=== PATIENT | male | born 1985 | race Caucasian/White ===

== ENCOUNTER 2018-04-30 10:48 | Emergency (ER) | payer BC, OTHER ==
--- NOTE | 2018-04-30 11:15 | EDPHYS ---
Physician Documentation [facility] Name: Reinaldo Romero Age: 32 yrs Sex: Male : 1985 Arrival Date: 04/30/2018 Time: 10:54 Bed 20 Private MD: None, None ED Physician Dave Miller HPI: 04/30 11:46 This 32 yrs old Male presents to ER via Ambulatory with complaints of Redness snw of Eye. 11:46 The patient sustained None. to the right eye, caused by an unknown mechanism. Onset: snw The symptoms/episode began/occurred suddenly, today. Duration: the symptoms are continuous. Aggravated by rubbing. Associated signs and symptoms: Pertinent positives: recent URI. Patient does not utilize any form of vision correction. Severity of symptoms: At their worst the symptoms were moderate. The patient has not experienced similar symptoms in the past. The patient has not recently seen a physician. Historical: - Allergies: 11:00 No Known Allergies; aj - Home Meds: 11:00 None [Active]; aj - PMHx: 11:00 None; aj - PSHx: 11:00 None; aj - Immunization history:: Adult Immunizations up to date, Last tetanus immunization: < 5 years ago. - Social history:: Smoking status: Patient/guardian denies using tobacco. - Ebola Screening: : Patient negative for fever greater than or equal to 101.5 degrees Fahrenheit, and additional compatible Ebola Virus Disease symptoms Patient denies exposure to infectious person Patient denies travel to an Ebola-affected area in the 21 days before illness onset. ROS: 11:45 Constitutional: Negative for fever, chills, and weight loss, ENT: Negative for injury, snw pain, and discharge, Neck: Negative for injury, pain, and swelling, Cardiovascular: Negative for chest pain, palpitations, and edema, Respiratory: Negative for shortness of breath, cough, wheezing, and pleuritic chest pain, Abdomen/GI: Negative for abdominal pain, nausea, vomiting, diarrhea, and constipation, Back: Negative for injury and pain, : Negative for injury, bleeding, discharge, and swelling, MS/Extremity: Negative for injury and deformity, Skin: Negative for injury, rash, and discoloration, Neuro: Negative for headache, weakness, numbness, tingling, and seizure. 11:45 Eyes: Positive for redness, of the outer aspect of conjuctiva of right eye and inner aspect of conjuctiva of right eye. Exam: 11:44 Constitutional: This is a well developed, well nourished patient who is awake, alert, snw and in no acute distress. Head/Face: Normocephalic, atraumatic. 11:44 Neck: Trachea midline, no thyromegaly or masses palpated, and no cervical lymphadenopathy. Supple, full range of motion without nuchal rigidity, or vertebral point tenderness. No Meningismus. Chest/axilla: Normal chest wall appearance and motion. Nontender with no deformity. No lesions are appreciated. Cardiovascular: Regular rate and rhythm with a normal S1 and S2. No gallops, murmurs, or rubs. Normal PMI, no JVD. No pulse deficits. Respiratory: Lungs have equal breath sounds bilaterally, clear to auscultation and percussion. No rales, rhonchi or wheezes noted. No increased work of breathing, no retractions or nasal flaring. Abdomen/GI: Soft, non-tender, with normal bowel sounds. No distension or tympany. No guarding or rebound. No evidence of tenderness throughout. Back: No spinal tenderness. No costovertebral tenderness. Full range of motion. Skin: Warm, dry with normal turgor. Normal color with no rashes, no lesions, and no evidence of cellulitis. MS/ Extremity: Pulses equal, no cyanosis. Neurovascular intact. Full, normal range of motion. Neuro: Awake and alert, GCS 15, oriented to person, place, time, and situation. Cranial nerves II-XII grossly intact. Motor strength 5/5 in all extremities. Sensory grossly intact. Cerebellar exam normal. Normal gait. 11:44 Eyes: Periorbital structures: appear normal, Pupils: no acute changes, Extraocular movements: no acute changes, Conjunctiva: exudate, in the right eye, injected, in the right eye. 11:44 ENT: Ear canal(s): are normal, TM's: bulging, on the left, decreased mobility, Examination of the other ear shows no obvious abnormality, Nose: Nasal mucosa: edematous, Posterior pharynx: is normal, Dental exam: normal. Vital Signs: 11:00 BP 141 / 91; Pulse 61; Resp 20; Temp 97.6; Pulse Ox 99% on R/A; Weight 95.25 kg; Height aj 6 ft. 1 in. (185.42 cm); 11:00 Body Mass Index 27.71 (95.25 kg, 185.42 cm) aj MDM: 11:02 Patient medically screened. snw 11:46 Data reviewed: vital signs, nurses notes. Data interpreted: Pulse oximetry: on room air snw is 99 %. Interpretation: normal. Counseling: I had a detailed discussion with the patient and/or guardian regarding: the historical points, exam findings, and any diagnostic results supporting the discharge/admit diagnosis, the presence of at least one elevated blood pressure reading (>120/80) during this emergency department visit, the need for outpatient follow up, for definitive care, to return to the emergency department if symptoms worsen or persist or if there are any questions or concerns that arise at home. Special discussion: Based on the history and exam findings, there is no indication for further emergent testing or inpatient evaluation. I discussed with the patient/guardian the need to see the ENT specialist for further evaluation of the symptoms. I discussed with the patient/guardian the need to see the primary care provider for further evaluation of the symptoms. Administered Medications: 11:10 Drug: Augmentin 875 mg Route: PO; ae1 11:33 Follow up: Response: Medication administered at discharge. ae1 Disposition: 22:07 Co-signature as Attending Physician, Dave Miller MD I agree with the assessment and kdr plan of care. Disposition: 04/30/18 11:14 Discharged to Home. Impression: Acute suppurative otitis media, Conjunctivitis. - Condition is Stable. - Discharge Instructions: Conjunctivitis (Viral and Bacterial), Otitis Media, Adult, Heat Therapy. - Prescriptions for Augmentin 875- 125 mg Oral Tablet - take 1 tablet by ORAL route every 12 hours for 10 days; 20 tablet. Vigamox 0.5 % Ophthalmic Drops - instill 1 drop by OPHTHALMIC route every 8 hours for 7 days; 5 milliliter. Zyrtec 10 mg Oral Tablet - take 1 tablet by ORAL route once daily As needed; 20 tablet. - Work release form, Medication Reconciliation Form, Thank You Letter, Antibiotic Education, Prescription Opioid Use form. - Follow up: Private Physician; When: 2 - 3 days; Reason: Recheck today's complaints, Continuance of care, Re-evaluation by your physician. Follow up: Emergency Department; When: As needed; Reason: Worsening of condition. Signatures: Kimmy Elizondo, RN RN Dave Magallanes MD MD [facility] Cesilia Hernandez, BEHAVIOUR SUPPORT TEACHER-C BEHAVIOUR SUPPORT TEACHER-[employer] Fredy Chi, RN RN ae1 Corrections: (The following items were deleted from the chart) 11:34 11:14 04/30/2018 11:14 Discharged to Home. Impression: Acute suppurative otitis media; ae1 Conjunctivitis. Condition is Stable. Forms are Medication Reconciliation Form, Thank You Letter, Antibiotic Education, Prescription Opioid Use. Follow up: Private Physician; When: 2 - 3 days; Reason: Recheck today's complaints, Continuance of care, Re-evaluation by your physician. Follow up: Emergency Department; When: As needed; Reason: Worsening of condition. snw
--- NOTE | 2018-04-30 11:15 | ER ---
Nurse's Notes [facility] Name: Reinaldo Romero Age: 32 yrs Sex: Male : 1985 Arrival Date: 04/30/2018 Time: 10:54 Bed 20 Private MD: None, None Diagnosis: Acute suppurative otitis media;Conjunctivitis Presentation: 04/30 10:59 Presenting complaint: Patient states: Reports right eye redness and itchiness since aj this AM. Transition of care: patient was not received from another setting of care. Onset of symptoms was April 30, 2018. Care prior to arrival: None. 10:59 Method Of Arrival: Ambulatory 10:59 Acuity: ALEENA 5 11:32 Risk Assessment: Do you want to hurt yourself or someone else? Patient reports no ae1 desire to harm self or others. Initial Sepsis Screen: Does the patient have a suspected source of infection? Yes: Other: patient reports discharge and redness to right eye. 11:33 Initial Sepsis Screen: Does the patient meet any 2 criteria? No. Patient's initial ae1 sepsis screen is negative. Triage Assessment: 11:00 General: Appears in no apparent distress. comfortable, Behavior is calm, cooperative, aj appropriate for age. Pain: Denies pain. EENT: Sclera/Cornea are reddened in outer aspect of conjuctiva of right eye, iris of right eye and inner aspect of conjuctiva of right eye. Neuro: Level of Consciousness is awake, alert, obeys commands, Oriented to person, place, time, situation, Appropriate for age. Respiratory: Airway is patent Respiratory effort is even, unlabored, Respiratory pattern is regular, symmetrical. Derm: Skin is intact, is healthy with good turgor, Skin is pink, warm \T\ dry. normal. Historical: - Allergies: 11:00 No Known Allergies; aj - Home Meds: 11:00 None [Active]; aj - PMHx: 11:00 None; aj - PSHx: 11:00 None; aj - Immunization history:: Adult Immunizations up to date, Last tetanus immunization: < 5 years ago. - Social history:: Smoking status: Patient/guardian denies using tobacco. - Ebola Screening: : Patient negative for fever greater than or equal to 101.5 degrees Fahrenheit, and additional compatible Ebola Virus Disease symptoms Patient denies exposure to infectious person Patient denies travel to an Ebola-affected area in the 21 days before illness onset. Screenin:31 Abuse screen: Denies threats or abuse. Nutritional screening: No deficits noted. ae1 Tuberculosis screening: No symptoms or risk factors identified. Fall Risk None identified. Assessment: 11:05 General: Appears in no apparent distress. comfortable. Pain: Complains of pain in right ae1 ear and right eye. Neuro: Level of Consciousness is awake, alert, obeys commands, Oriented to person, place, time, situation. Cardiovascular: Patient's skin is warm and dry. Respiratory: Airway is patent Respiratory effort is even, unlabored, Respiratory pattern is regular, symmetrical. GI: No signs and/or symptoms were reported involving the gastrointestinal system. : No signs and/or symptoms were reported regarding the genitourinary system. EENT: Eyes are tearing on outer aspect of conjuctiva of right eye, iris of right eye and inner aspect of conjuctiva of right eye Redness to the right sclera . EENT: Reports pain right ear. Derm: Skin is pink, warm \T\ dry. Musculoskeletal: No signs and/or symptoms reported regarding the musculoskeletal system. Vital Signs: 11:00 BP 141 / 91; Pulse 61; Resp 20; Temp 97.6; Pulse Ox 99% on R/A; Weight 95.25 kg; Height aj 6 ft. 1 in. (185.42 cm); 11:00 Body Mass Index 27.71 (95.25 kg, 185.42 cm) aj ED Course: 10:54 Patient arrived in ED. mr 10:54 None, None is Private Physician. mr 11:00 Triage completed. aj 11:00 Arm band placed on left wrist. Patient placed in an exam room. aj 11:01 Cesilia Hernandez FNP-C is [facility]. snw 11:01 Dave Miller MD is Attending Physician. snw 11:09 Fredy Chi, DOMO is Primary Nurse. ae1 11:28 Bed in low position. Call light in reach. Side rails up X 1. Pulse ox on. ae1 11:32 No provider procedures requiring assistance completed. Patient did not have IV access ae1 during this emergency room visit. Administered Medications: 11:10 Drug: Augmentin 875 mg Route: PO; ae1 11:33 Follow up: Response: Medication administered at discharge. ae1 Outcome: 11:14 Discharge ordered by . snw 11:32 Discharged to home ambulatory. ae1 11:32 Condition: stable 11:32 Discharge instructions given to patient, Instructed on discharge instructions, follow up and referral plans. medication usage, Demonstrated understanding of instructions, Prescriptions given X 3. 11:34 Patient left the ED. ae1 Signatures: Kimmy Elizondo RN RN Cesilia Douglas, CO FOUNDER-C CO FOUNDER-[employer] Maida Anaya Andrea, RN RN ae1 Corrections: (The following items were deleted from the chart) 11:00 10:59 Acuity: ALEENA 2 jesus lee
[2018-04-30] MEDS ORDERED: AMOX/K CLAV 875 MG TAB ONE (11:25)
== END 2018-04-30 11:34 | disposition home or self-care (01) ==
LOC: ER 10:48
DX: H66.002 Acute suppurative otitis media without spontaneous rupture of ear drum, left ear (principal); H10.9 Unspecified conjunctivitis
CPT/HCPCS: 99283

== ENCOUNTER 2019-07-21 06:56 | Day surgery (SDC) | payer BC ==
[2019-07-20 11:27] LABS: Absolute Lymphocytes (CBC) 2.5 K/uL (0.7-4.9); Basophils % 0.5 % (0-1.3); Hematocrit 48.7 % (39.6-49.0); Lymphocytes % 57.4 % (15.3-44.8); MPV 8.2 fL (7.6-11.3); RBC Red Blood Cell Count 5.48 M/uL (4.33-5.43)
[2019-07-20 11:51] LABS: BUN Blood Urea Nitrogen 11 mg/dL (7-18); Bicarbonate 26 mmol/L (21-32); Glucose Level 95 mg/dL (74-106); Potassium 4.2 mmol/L (3.5-5.1); Sodium Level 142 mmol/L (136-145)
[2019-07-20 12:30] LABS: Blood Morphology Comment NOT SEEN (NOT SEEN); Platelet Estimate ADEQ
[2019-07-21] MEDS ORDERED: CEFAZOLIN/SWI 1gm 1 GM/10 ML SYR ONE (07:05)
[2019-07-21] MEDS ORDERED: Ringers Lactate 1,000 ML IV ONE (07:05)
[2019-07-21] MEDS ORDERED: LIDOCAINE 2% MPF 5 ML VIAL ONE (07:07)
[2019-07-21] MEDS ORDERED: MIDAZOLAM HCL 2 MG/2 ML INJ ONE (07:07)
[2019-07-21] MEDS ORDERED: PROPOFOL 200 MG/20 ML VIAL IV ONE (07:07)
[2019-07-21] MEDS ORDERED: FENTANYL CITR 250 MCG/5 ML ONE (07:07)
[2019-07-21] MEDS ORDERED: ONDANSETRON 4 MG/2 ML VIAL ONE (07:07)
[2019-07-21] MEDS ORDERED: ROCURONIUM 50 MG/5 ML VIAL IV ONE (07:07)
[2019-07-21] MEDS ORDERED: GLYCOPYRROLATE 0.2 MG/ML SYR ONE ×2 (08:11→08:23)
[2019-07-21] MEDS ORDERED: NEOSTIGMINE 1 MG/ML -10 ML VIAL ONE (08:23)
[2019-07-21] MEDS ORDERED: KETOROLAC 30 MG/ML INJ ONE (08:23)
--- NOTE | 2019-07-21 08:26 | P.BOP ---
Preoperative diagnosis: bilateral tender inguinal hernias Postoperative diagnosis: same Primary procedure: 1. Laparoscopic repair of Right tender inguinal hernia with mesh Secondary procedure: 2. Laparoscopic repair of left tender inguinal hernia with mesh Cardiac Care Unit Nurse: Mary Brooks) Estimated blood loss: <10cc Specimen: none Findings: as above Anesthesia: General Drain(s): Other Transferred to: Recovery Room Condition: Good
[2019-07-21] MEDS ORDERED: HYDROCODONE/APAP 7.5/325 MG TAB ONE (09:51)
--- NOTE | 2019-07-23 01:56 | OP ---
Date of Procedure: 07/21/2019 Surgeon: Dani Disla MD Care Rep: JERAMIE Rios Preoperative Diagnosis: Bilateral tender inguinal hernias. Postoperative Diagnosis: Bilateral tender inguinal hernias. Procedures: 1.Operative repair of right tender inguinal hernia with mesh. 2.Laparoscopic repair of left tender inguinal hernia with mesh. Anesthesia: General plus local. Findings: As above. Estimated Blood Loss: Less than 10 mL. Indications: This is the case of a male, who comes to us with bilateral tender inguinal hernias. Be nefits, alternatives, and risks of repair with mesh fully explained. Laparoscopic versus open which include, but not limited to infection, bleeding, damage to adjacent structures, anesthetic complicati on, MA, or even . He also understands this may not relieve any symptoms. He might need more th an one surgical intervention. He also understands. We have the intention to use mesh. The pros and cons of mesh placement were placed. All the question were answered to his satisfaction. He did all ow me to use mesh. Description Of Procedure: At that moment, we proceeded to bring the patient to the operating room, p laced in supine position. Anesthesia was given without complication. A time-out was called. Abdome n and inguinal area were prepped and draped in sterile fashion. Marcaine 0.5% was injected for local anesthetic followed by sharp incision of the skin in the infraumbilical region. Incision was hugo d down to the fascia. When we saw the anterior rectus sheath, it was opened. The muscle was retract ed laterally to expose the posterior rectus sheath. The extraperitoneal space was gently developed w ith blunt dissection and the balloon tipped catheter directed toward the pubic symphysis. This was a double balloon. Laparoscope was placed in. Once again balloon was inflated under direct visualizat ion to create the extraperitoneal space. The balloon was removed. Insufflation was done and we plac ed a 5 mm trocar just above the pubis symphysis and another one fpc between the first and the sec ond one. The preperitoneal space was further developed by exposing the inferior epigastric vessels a nd keeping them anterior to the dissection. Mike ligament was dissected laterally to the junction with the iliac veins. The dissection was continued inferiorly to the iliopubic tract, avoiding damag e to the femoral branch of the genitofemoral nerve and lateral femoral cutaneous nerve. The cord str uctures were carefully skeletonized and identified. The hernia sac was identified and this was done on the right side and left side individually. Once we have 2 hernia sac into the peritoneum protecti ng the spermatic cord structures, then we proceeded to put left and right 3D mesh over the area. Fir st with the left side secured in place to align covering direct and indirect spaces. The mesh was se cured in place with a SorbaFix lateral and superior to the iliopubic tract and inferior and medial to the Mike ligament. The same was done on the opposite side. After securing adequate hemostasis, w e proceeded to hold 2 other hernia sacs still in the peritoneum holding the mesh in place and deflate the area under direct visualization. The trocars were removed. The anterior rectus sheath was clos ed with #1 Vicryl and skin in a subcuticular fashion with 3-0 chromic and Steri-Strips on top. At th e end of the case, the testicles were in the scrotum. Disposition: Home. Activity: As tolerated. No heavy lifting. Followup: Follow up in my office in 1 week. Call for appointment [phone]. Keep area dry for 48 ho urs, then may shower. Keep Steri-Strips intact. Medications: See orders. SHARLENE/MODL Voice ID: [id number] Report ID: [id number]
== END 2019-07-21 14:40 | disposition home or self-care (01) ==
LOC: OR 06:56
PROVIDERS: ATTEND Surgery
PROC: 0YUA4JZ Supplement Bilateral Inguinal Region with Synthetic Substitute, Percutaneous Endoscopic Approach (ICD-10-PCS; principal; 2019-07-21 07:30)
DX: K40.20 Bilateral inguinal hernia, without obstruction or gangrene, not specified as recurrent (principal)
CPT/HCPCS: 85025; 80048; 36415; 49650; J2704; J2710; J2250; J3010; J0690; J2405